=== PATIENT | male | born 1950 | race Caucasian/White ===

== ENCOUNTER 2017-09-27 12:53 | Emergency (ER) | payer OTHER ==
[2017-09-27 13:02] VITALS: BP 147/86; PULSE 60; TEMP 97.4; BMI 22.4
--- NOTE | 2017-09-27 13:10 | PDOC ---
History of Present Illness - General History Source: Patient Exam Limitations: No Limitations - History of Present Illness Initial Comments: 09/27/17 16:02 The patient is a 67 year old male, with a significant past medical history of kidney stones, who presents to the emergency department with acute right flank pain and nausea without vomiting beginning this morning. The patient reports he has a history of kidney stones all of which have passed on their own without requiring stenting. He denies recent fever, chills, headache or dizziness. He denies dysuria or hematuria. He denies chest pain or shortness of breath. Allergies: fish derived PCP: Dr. Saeed Curtis <Kody Saavedra - Last Filed: 09/27/17 16:08> <Carli Clement - Last Filed: 09/27/17 16:21> - General Chief Complaint: Pain, Acute Stated Complaint: right flank pain Time Seen by Provider: 09/27/17 13:10 Past History <Kody Saavedra - Last Filed: 09/27/17 16:08> - Past Medical History Asthma: Yes COPD: No Hypercholesterolemia: Yes Kidney Stones: Yes - Suicide/Smoking/Psychosocial Hx Smoking History: Never smoked Have you smoked in the past 12 months: No Hx Alcohol Use: No Drug/Substance Use Hx: No Substance Use Type: None <Carli Clement - Last Filed: 09/27/17 16:21> - Past Medical History Allergies/Adverse Reactions: Allergies Allergy/AdvReac Type Severity Reaction Status Date / Time fish derived Allergy Verified 09/27/17 12:54 Home Medications: Ambulatory Orders Atorvastatin Ca [Lipitor] 40 mg PO HS tablet 08/11/16 Oxycodone HCl/Acetaminophen [Percocet 5-325 mg Tablet] 1 tab PO Q4H PRN #10 tablet MDD 4 09/27/17 Review of Systems - Review of Systems Comments:: 09/27/17 16:03 GENERAL/CONSTITUTIONAL: No fever or chills. No weakness. HEAD, EYES, EARS, NOSE AND THROAT: No change in vision. No ear pain or discharge. No sore throat. CARDIOVASCULAR: No chest pain or shortness of breath. RESPIRATORY: No cough, wheezing, or hemoptysis. GASTROINTESTINAL: +Nausea. No vomiting, diarrhea or constipation. GENITOURINARY: No dysuria, frequency, or change in urination. MUSCULOSKELETAL: +Right flank pain. No neck pain. SKIN: No rash NEUROLOGIC: No headache, vertigo, loss of consciousness, or change in strength/ sensation. ENDOCRINE: No increased thirst. No abnormal weight change. HEMATOLOGIC/LYMPHATIC: No anemia, easy bleeding, or history of blood clots. ALLERGIC/IMMUNOLOGIC: No hives or skin allergy. <Kody Saavedra - Last Filed: 09/27/17 16:08> *Physical Exam - Vital Signs Last Vital Signs Temp Pulse Resp BP Pulse Ox 97.4 F L 60 18 147/86 100 09/27/17 12:53 09/27/17 12:53 09/27/17 12:53 09/27/17 12:53 09/27/17 12:53 - Physical Exam Comments: 09/27/17 16:04 GENERAL: +Mildly uncomfortable. Awake, alert, and fully oriented. HEAD: No signs of trauma EYES: PERRLA, EOMI, sclera anicteric, conjunctiva clear ENT: Auricles normal inspection, hearing grossly normal, nares patent, oropharynx clear without exudates. Moist mucosa NECK: Normal ROM, supple, no lymphadenopathy, JVD, or masses LUNGS: Breath sounds equal, clear to auscultation bilaterally. No wheezes, and no crackles HEART: Regular rate and rhythm, normal S1 and S2, no murmurs, rubs or gallops ABDOMEN: Soft, nontender, normoactive bowel sounds. No guarding, no rebound. No masses EXTREMITIES: Normal range of motion, no edema. No clubbing or cyanosis. No cords, erythema, or tenderness NEUROLOGICAL: Cranial nerves II through XII grossly intact. Normal speech, normal gait SKIN: Warm, Dry, normal turgor, no rashes or lesions noted. <Kody Saavedra - Last Filed: 09/27/17 16:08> - Vital Signs Last Vital Signs Temp Pulse Resp BP Pulse Ox 97.4 F L 60 18 147/86 100 09/27/17 12:53 09/27/17 12:53 09/27/17 12:53 09/27/17 12:53 09/27/17 12:53 <Carli Clement - Last Filed: 09/27/17 16:21> ED Treatment Course - LABORATORY CBC & Chemistry Diagram: 09/27/17 13:10 12/10/17 13:10 - ADDITIONAL ORDERS Additional order review: Laboratory Results 09/27/17 09/27/17 14:56 13:10 Sodium 136 Potassium 3.6 Chloride 102 Carbon Dioxide 27 Anion Gap 7 L BUN 23 H D Creatinine 1.2 D Creat Clearance w eGFR > 60 Random Glucose 127 H D Calcium 9.5 Total Bilirubin 0.4 D AST 18 ALT 26 D Alkaline Phosphatase 68 Total Protein 7.1 Albumin 4.3 Urine Color Yellow Urine Appearance Cloudy Urine pH 5.5 D Ur Specific [place] >= 1.030 H Urine Protein 30 mg/dl Urine Glucose (UA) Negative Urine Ketones Trace H Urine Blood Moderate Urine Nitrite Negative Urine Bilirubin Negative Urine Urobilinogen 0.2 Ur Leukocyte Esterase Negative 09/27/17 13:10 RBC 4.98 MCV 86.9 MCHC 33.3 RDW 13.3 MPV 8.2 Neutrophils % 54.8 Lymphocytes % 36.2 D Monocytes % 4.9 Eosinophils % 3.5 Basophils % 0.6 - RADIOLOGY Radiograph Interpretation: 09/27/17 16:05 EXAM#: TYPE/EXAM: RESULT: [id number] CT/SPIRAL- RENAL-STONE CT Renal stone CT (without contrast) Clinical information: right flank pain, evaluate for renal stone Multiplanar imaging was performed. No intravenous or enteric contrast was administered. An approximately 4 x 3 mm calculus is seen within the intramural segment of the distal right ureter with resultant mild to moderate hydroureteronephrosis. A 2 mm nonobstructing right renal lower pole calculus is again seen. In comparison to a previous CT exam of 07/27/2015 note is made of interval passage/removal of a 2 mm proximal left ureteral calculus resolution of ipsilateral hydronephrosis. Interval development of a 2 mm nonobstructing left renal mid pole calculus is seen. The remainder of the exam demonstrates no definite interval change. Several punctate radiopaque gallbladder calculi are visualized. Small umbilical hernia containing fat only. 3 cm diverticulum along the medial aspect of the second and third portions of the duodenal sweep. The liver, spleen, pancreas, and adrenal glands demonstrate no discrete noncontrast pathology. There is no aortic aneurysm. No CT evidence of pathologic lymphadenopathy. Note is again made of several calcified precaval retroperitoneal lymph nodes. There is no free intraperitoneal fluid. The appendix appears unremarkable. Colonic diverticulosis is noted without evidence of acute diverticulitis. Prostate enlargement which is probably mild to moderate. Bilateral inguinal hernias containing fat only. The visualized osseous structures demonstrate no obvious acute pathology. Impression: A 4 x 3 mm distal right ureteral calculus is noted at the level of the urinary bladder wall with resultant mild to moderate hydronephrosis. 2 mm nonobstructing bilateral renal calculi. Cholelithiasis. Small umbilical hernia containing fat only. Bilateral inguinal hernias containing fat only. Reported By: Conrad Gates MD - Medications Given in the ED: ED Medications Discontinued Medications Generic Name Dose Route Start Last Admin Trade Name Freq PRN Reason Stop Dose Admin Ketorolac Tromethamine 30 mg 09/27/17 13:11 09/27/17 13:18 Toradol Injection - IVPUSH 09/27/17 13:12 30 mg ONCE ONE Administration Oxycodone/Acetaminophen 2 combo 09/27/17 14:56 09/27/17 14:59 Percocet 5/325 - PO 09/27/17 14:57 2 combo ONCE ONE Administration <Kody Saavedra - Last Filed: 09/27/17 16:08> - LABORATORY CBC & Chemistry Diagram: 09/27/17 13:10 09/27/17 13:10 <Carli Clement - Last Filed: 09/27/17 16:21> Medical Decision Making - Medical Decision Making 09/27/17 16:15 pt presents to the ED complaining of R flank pain. Denies dysuria, nausea or vomiting. Denies fever. Symptoms are similar to previous renal stones. CT scan shows mild hydronephrosis with 4mm stone in bladder wall on the R. Patient 's pain is improved. Will discharge home with instructions to follow up in three days if pain is not resolved. <Carli Clement - Last Filed: 09/27/17 16:21> *DC/Admit/Observation/Transfer - Attestations Scribe Attestion: 09/27/17 16:04 Documentation prepared by Kody Saavedra, acting as medical policy specialist for Carli Clement MD. <Kody Saavedra - Last Filed: 09/27/17 16:08> - Discharge Dispostion Admit: No <Carli Clement - Last Filed: 09/27/17 16:21> Diagnosis at time of Disposition: Nephrolithiasis - Discharge Dispostion Disposition: HOME Condition at time of disposition: Good - Prescriptions Prescriptions: Oxycodone HCl/Acetaminophen [Percocet 5-325 mg Tablet] 1 tab PO Q4H PRN #10 tablet MDD 4 PRN Reason: Pain - Patient Instructions Printed Discharge Instructions: Kidney Stones -- Adult Additional Instructions: Return to the ED for fever, severe pain, nausea and vomiting, pain with urination, symptoms unresolved after three days.
[2017-09-27] MEDS ORDERED: KETOROLAC TROMETHAMINE 30 MG/1 ML VIAL ONE (13:11)
[2017-09-27] MEDS ORDERED: KETOROLAC TROMETHAMINE 30 MG/1 ML VIAL IVPUSH ONE (13:11)
[2017-09-27 13:25] LABS: BASOPHIL 0.6 % (0-2.0); EOSINOPHIL 3.5 % (0-4.5); MCHC 33.3 g/dl (32.0-35.9); MEAN CELL VOLUME 86.9 fl (80-96); MEAN PLT VOLUME 8.2 fl (7.5-11.1); NEUTROPHILS 54.8 % (42.8-82.8); PLATELET COUNT 191 K/MM3 (134-434); RDW 13.3 % (11.9-15.9); WHITE BLOOD COUNT 7.6 K/mm3 (4.0-10.8)
[2017-09-27 13:44] LABS: ALBUMIN 4.3 g/dl (3.5-5.0); ALK PHOS 68 U/L (32-92); ANION GAP 7 (8-16); BILIRUBIN,TOTAL 0.4 mg/dl (0.2-1.0); CALCIUM 9.5 mg/dl (8.4-10.2); CO2 27 mmol/L (22-28); CREATININE 1.2 mg/dl (0.6-1.3); GLUCOSE,RANDOM 127 mg/dl (74-106); SGOT/AST 18 U/L (10-42); SGPT/ALT 26 U/L (10-40); TOT PROT 7.1 g/dl (6.4-8.3)
[2017-09-27 15:50] LABS: URINE APPEARANCE CLOUDY; URINE BILIRUBIN NEGATIVE (NEGATIVE); URINE COLOR YELLOW; URINE GLUCOSE (UA) NEGATIVE (NEGATIVE)
[2017-09-27 15:51] LABS: PH,URINE 5.5 (4.5-8); URINE KETONE TRACE (NEGATIVE); URINE NITRITE NEGATIVE (NEGATIVE); URINE UROBILINOGEN 0.2 (0.2-1.0)
[2017-09-27 15:52] LABS: URINE LEUK ESTERASE NEGATIVE (NEGATIVE)
[2017-09-27 15:57] LABS: URINE BLOOD MODERATE (NEGATIVE)
== END 2017-09-27 16:25 | disposition home or self-care (01) ==
LOC: FER 12:53
PROC: 3E0333Z Introduction of Anti-inflammatory into Peripheral Vein, Percutaneous Approach (ICD-10-PCS; principal; 2017-09-27)
DX: N20.0 Calculus of kidney (principal); J45.909 Unspecified asthma, uncomplicated; E78.00 Pure hypercholesterolemia, unspecified
CPT/HCPCS: 36415; 74176; 80053; 81003; 85025; 99283-25

== ENCOUNTER 2021-09-21 01:34 | Inpatient (IN) | payer OTHER ==
[2021-09-21 01:49] VITALS: BMI 22.1
[2021-09-21] MEDS ORDERED: SODIUM CHLORIDE 1,000 ML IV STA (02:15)
[2021-09-21] MEDS ORDERED: KETOROLAC TROMETHAMINE 30 MG/1 ML VIAL IVPUSH ONE (02:15)
[2021-09-21] MEDS ORDERED: KETOROLAC TROMETHAMINE 30 MG/1 ML VIAL ONE (02:18)
[2021-09-21] MEDS ORDERED: CIPROFLOXACIN 500 MG TABLET (RESTRICTED TO ID) PO ONE (02:55)
[2021-09-21] MEDS ORDERED: PHENAZOPYRIDINE HCL 100 MG TABLET (FP) PO ONE (02:57)
[2021-09-21] MEDS ORDERED: PHENAZOPYRIDINE HCL 100 MG TABLET (FP) ONE (02:59)
[2021-09-21] MEDS ORDERED: CIPROFLOXACIN 250 MG TABLET (RESTRICTED TO ID) PO ONE (02:59)
[2021-09-21 03:54] LABS: EPI CELLS 0 /uL (0-25.1); HYALINE CASTS 1 /uL (0-3.1); PH,URINE 5.5 (5.0-8.0); URINE APPEARANCE CLOUDY; URINE BILIRUBIN NEGATIVE (NEGATIVE); URINE COLOR DK YELLOW; URINE GLUCOSE (UA) NEGATIVE (NEGATIVE); URINE KETONE NEGATIVE (NEGATIVE); URINE LEUK ESTERASE 2+ (NEGATIVE); URINE NITRITE POSITIVE (NEGATIVE); URINE PROTEIN 1+ (NEGATIVE); URINE RBC 19 /uL (0-23.9); URINE WBC 807 /uL (0-25.8)
[2021-09-21] MEDS ORDERED: CEFTRIAXONE 1,000 MG in DEXTROSE 5%-WATER - 50 ML IVPB ONE (07:05)
[2021-09-21] MEDS ORDERED: cefTRIAXone SODIUM 1 GM VIAL ONE (07:30)
[2021-09-21 07:35] LABS: ALBUMIN 3.2 g/dl (3.4-5.0); BLOOD UREA NITROGEN 18.8 mg/dL (7-18); CALCIUM 8.7 mg/dL (8.5-10.1); CREATININE 1.5 mg/dL (0.55-1.3); TOT PROT 6.9 g/dl (6.4-8.2)
[2021-09-21 08:08] LABS: BASO % 0.1 % (0-2.0); EOS % 0.3 % (0-4.5); HEMATOCRIT 37.4 % (35.4-49); HEMOGLOBIN 12.5 GM/dL (11.7-16.9); LYMPH % 6.8 % (8-40); MCH 29.3 pg (25.7-33.7); MCHC 33.5 g/dl (32.0-35.9); MEAN CELL VOLUME 87.6 fl (80-96); MEAN PLT VOLUME 8.1 fl (7.5-11.1); NEUT % 88.8 % (42.8-82.8); PLATELET COUNT 174 10^3/uL (134-434); RBC 4.27 M/mm3 (4.00-5.60); RDW 14.3 % (11.9-15.9); WHITE BLOOD COUNT 15.8 K/mm3 (4.0-10.0)
[2021-09-21 08:09] LABS: INR 1.08 (0.83-1.09); PROTHROMBIN TIME (PATIENT) 12.1 SEC (9.7-13.0)
[2021-09-21 08:20] LABS: BILIRUBIN,TOTAL 1.1 mg/dL (0.2-1)
[2021-09-21] MEDS ORDERED: ePHEDrine SULFATE 50 MG/1 ML AMPULE ONE (12:52)
[2021-09-21] MEDS ORDERED: LIDOCAINE HCL/PF 2% SDV 5ML VIAL ONE (12:52)
[2021-09-21] MEDS ORDERED: DEXAMETHASONE SOD PHOSPHATE 4 MG/1 ML VIAL ONE (12:52)
[2021-09-21] MEDS ORDERED: GLYCOPYRROLATE 0.2 MG/1 ML VIAL ONE (12:52)
[2021-09-21] MEDS ORDERED: MIDAZOLAM HCL 2 MG/2 ML SINGLE DOSE VIAL ONE (12:53)
[2021-09-21] MEDS ORDERED: SUCCINYLCHOLINE CHLORIDE 200 MG/10 ML SYRINGE ONE (12:53)
[2021-09-21] MEDS ORDERED: PROPOFOL 20 ML ONE (12:53)
[2021-09-21] MEDS ORDERED: PROMETHAZINE HCL 25 MG/1 ML VIAL IVPUSH PRN (13:21)
[2021-09-21] MEDS ORDERED: oxyCODONE HCL 5 MG TABLET PO PRN (13:21)
[2021-09-21] MEDS ORDERED: ONDANSETRON 4 MG/2 ML VIAL IVPUSH PRN (13:21)
[2021-09-21] MEDS ORDERED: TAMSULOSIN HCL 0.4 MG CAP PO ONE (14:33)
[2021-09-21] MEDS: LACTATED RINGERS SOLUTION 1,000 ML/1,000 ML INFUS.BAG IV SCH (16:05)
[2021-09-21] MEDS: SODIUM CHLORIDE 1,000 ML IV SCH (16:06)
[2021-09-22] MEDS: LACTATED RINGERS SOLUTION 1,000 ML/1,000 ML INFUS.BAG IV SCH (06:17)
[2021-09-22] MEDS: HEPARIN NA (PORCINE) 5,000 UNITS/ML 1ML VIAL SQ SCH ×2 (06:17→14:55)
[2021-09-22 06:28] VITALS: TEMP 97.9
[2021-09-22 09:46] LABS: BASO % 0.1 % (0-2.0); EOS % 0.1 % (0-4.5); HEMATOCRIT 33.6 % (35.4-49); HEMOGLOBIN 11.3 GM/dL (11.7-16.9); LYMPH % 12.3 % (8-40); MCH 29.7 pg (25.7-33.7); MCHC 33.8 g/dl (32.0-35.9); MEAN CELL VOLUME 87.9 fl (80-96); MEAN PLT VOLUME 7.6 fl (7.5-11.1); MONO % 3.2 % (3.8-10.2); NEUT % 84.3 % (42.8-82.8); PLATELET COUNT 168 10^3/uL (134-434); RBC 3.82 M/mm3 (4.00-5.60); RDW 14.4 % (11.9-15.9); WHITE BLOOD COUNT 11.7 K/mm3 (4.0-10.0)
[2021-09-22] MEDS ORDERED: cefTRIAXone SODIUM 1 GM VIAL ONE (09:46)
[2021-09-22] MEDS ORDERED: DEXTROSE 5%-WATER - 50 ML IVPB ONE (09:46)
[2021-09-22] MEDS ORDERED: CEFTRIAXONE 1 GM in DEXTROSE 5%-WATER - 50 ML IVPB SCH (10:00)
[2021-09-22 10:12] LABS: CALCIUM 8.7 mg/dL (8.5-10.1)
[2021-09-22 10:13] LABS: BLOOD UREA NITROGEN 16.7 mg/dL (7-18)
[2021-09-22] MEDS: SODIUM CHLORIDE 1,000 ML IV SCH (10:14)
[2021-09-22 10:17] LABS: TOT PROT 5.7 g/dl (6.4-8.2)
[2021-09-22 10:18] LABS: BILIRUBIN,TOTAL 0.4 mg/dL (0.2-1)
[2021-09-22 10:21] LABS: ALBUMIN 2.5 g/dl (3.4-5.0)
[2021-09-22 14:10] VITALS: BP 102/62; PULSE 71
== END 2021-09-22 15:00 | disposition home or self-care (01) | DRG 661 ==
LOC: FER 01:34 → J6S 08:44
PROC: 0T778DZ Dilation of Left Ureter with Intraluminal Device, Via Natural or Artificial Opening Endoscopic (ICD-10-PCS; principal; 2021-09-21 13:13)
DX: N13.6 Pyonephrosis (principal); E78.5 Hyperlipidemia, unspecified; K21.9 Gastro-esophageal reflux disease without esophagitis; N17.9 Acute kidney failure, unspecified; I10 Essential (primary) hypertension; R33.9 Retention of urine, unspecified; D72.829 Elevated white blood cell count, unspecified
CPT/HCPCS: 36415; 71045-TC-FY; 74176-TC; 76000-TC-FY; 80053; 81003; 85025; 85610; 86850; 86900; 86901; 87040; 87086; 93005; 94760; 99285-25; C9803; J1644; U0003; U0005

== ENCOUNTER 2021-10-04 05:03 | Day surgery (SDC) | payer OTHER ==
[2021-10-03 09:40] VITALS: BMI 22.1
[2021-10-04 14:17] VITALS: TEMP 97.2
[2021-10-04 17:18] VITALS: BP 97/56; PULSE 65
== END 2021-10-04 16:51 | disposition home or self-care (01) ==
LOC: JASU-SURG 05:03
PROVIDERS: ATTEND Urology
PROC: 0TC78ZZ Extirpation of Matter from Left Ureter, Via Natural or Artificial Opening Endoscopic (ICD-10-PCS; principal; 2021-10-04)
PROC: 0T778DZ Dilation of Left Ureter with Intraluminal Device, Via Natural or Artificial Opening Endoscopic (ICD-10-PCS; 2021-10-04)
DX: N20.1 Calculus of ureter (principal); N40.0 Benign prostatic hyperplasia without lower urinary tract symptoms
CPT/HCPCS: 76000-TC-FY; 94760

== ENCOUNTER 2021-11-14 04:16 | Day surgery (SDC) | payer OTHER ==
[2021-11-13 12:55] VITALS: BMI 22.1
[2021-11-14] MEDS ORDERED: LIDOCAINE HCL/PF 2% SDV 5ML VIAL ONE (14:42)
[2021-11-14] MEDS ORDERED: PROPOFOL 20 ML ONE ×4 (14:43→14:44)
[2021-11-14] MEDS ORDERED: ceFAZolin SODIUM 1 GM VIAL IVPB ONE (14:56)
[2021-11-14] MEDS ORDERED: LIDOCAINE HCL 2% JELLY 10 ML CARTRIDGE ONE (15:00)
[2021-11-14] MEDS ORDERED: MIDAZOLAM HCL 2 MG/2 ML SINGLE DOSE VIAL ONE (15:00)
[2021-11-14 18:13] VITALS: BP 110/70; PULSE 82; TEMP 98.1
== END 2021-11-14 18:16 | disposition home or self-care (01) ==
LOC: JASU-SURG 04:16
PROVIDERS: ATTEND Urology
PROC: 0T7D8DZ Dilation of Urethra with Intraluminal Device, Via Natural or Artificial Opening Endoscopic (ICD-10-PCS; principal; 2021-11-14 14:00)
DX: N32.0 Bladder-neck obstruction (principal); R33.8 Other retention of urine; N32.89 Other specified disorders of bladder; N32.3 Diverticulum of bladder; N20.0 Calculus of kidney
CPT/HCPCS: C9740; L8699; 94760